=== PATIENT | male | born 1940 | race Caucasian/White ===

== ENCOUNTER 2019-06-15 21:42 | Inpatient (IN) | payer MEDICARE ==
[~2019-06-15] VITALS: Ht 188 cm; Wt 117.5 kg
[~2019-06-15 21:42] MED LIST: ACET325T14 PO; APIX2.5T PO; ATOR-2 PO; CARV3.1212 PO; CARV6.252 PO; GUAI200T37 PO; LISI-167 PO; POTA20TA14 PO; SPIR50TA PO
[2019-06-15] MEDS ORDERED: DILTIAZEM 125 MG in SODIUM CHLORIDE 0.9% 100 ML IV SCH (21:45)
[2019-06-15] MEDS ORDERED: DILTIAZEM 5 MG/ML, 5ML ONE (21:48)
[2019-06-15] MEDS ORDERED: ONDANSETRON 2MG/ML, 2ML ONE (21:48)
[2019-06-15] MEDS ORDERED: SODIUM CHLORIDE FLUSH 10ML SYR IVF ONE (22:00)
[2019-06-15] MEDS ORDERED: ONDANSETRON 2MG/ML, 2ML IVPush ONE (22:00)
[2019-06-15] MEDS ORDERED: DILTIAZEM 5 MG/ML, 5ML IV ONE (22:00)
[2019-06-15 22:01] LABS: BASOPHILS # (AUTO) 0.02 x10^3/uL (0-0.1); BASOPHILS % (AUTO) 0 % (0-1); EOSINOPHILS # (AUTO) 0.06 x10^3/uL (0-0.4); EOSINOPHILS % (AUTO) 1 % (1-7); LYMPHOCYTES # (AUTO) 1.34 x10^3/uL (1-3.4); LYMPHOCYTES % (AUTO) 16 % (22-44); MD NO; MEAN CORPUSCULAR HEMOGLOBIN 33.1 pg (27.5-34.5); MEAN CORPUSCULAR VOLUME 103.5 fL (81-97); MEAN PLATELET VOLUME 8.2 fL (7.4-10.4); MONOCYTES # (AUTO) 0.13 x10^3/uL (0.2-0.8); MONOCYTES % (AUTO) 2 % (2-9); NEUTROPHILS # (AUTO) 6.96 x10^3/uL (1.8-6.8); NEUTROPHILS % (AUTO) 82 % (42-75); PLATELET COUNT 153 x10^3/uL (130-400); RED CELL DISTRIBUTION WIDTH 15.3 % (9.4-14.8)
[2019-06-15 22:09] LABS: INTERNATIONAL NORMALIZED RATIO 1.11 (0.93-1.1); PROTHROMBIN TIME 11.6 Seconds (9.6-11.5)
[2019-06-15 22:11] LABS: ALANINE AMINOTRANSFERASE 24 U/L (12-78); ALBUMIN 3.5 g/dL (3.4-5.0); ANION GAP 7 mmol/L (5-15); CALCIUM 9.4 mg/dL (8.5-10.1); CHLORIDE 110 mmol/L (98-107); CREATININE 1.57 mg/dL (0.7-1.3)
[2019-06-15] MEDS ORDERED: CARV3.1212 PO (22:14)
[2019-06-15] MEDS ORDERED: SPIR50TA4 PO (22:14)
[2019-06-15] MEDS ORDERED: FURO20TA3 PO (22:14)
[2019-06-15 22:16] LABS: ALKALINE PHOSPHATASE 126 U/L (45-117); BILIRUBIN,TOTAL 1.6 mg/dL (0.2-1.0); TROPONIN I 0.023 ng/mL (0.000-0.045)
[2019-06-15] MEDS ORDERED: FUROSEMIDE 40 MG/4 ML IV ONE (22:30)
[2019-06-15] MEDS ORDERED: FUROSEMIDE 20 MG/2 ML ONE (22:36)
--- NOTE | 2019-06-15 22:50 | NUR ---
PT SATING 87% ON N/C AT 4L O2. PT PLACED ON OXY MASK 6L, SATING 91%
--- NOTE | 2019-06-15 23:31 | NUR ---
PT GIVEN URINAL TO VOID. PT RESTING CALMLY IN BED, AT BEDSIDE. WILL CONTINUE TO MONITOR.
[2019-06-16] MEDS ORDERED: ONDANSETRON ODT 4 MG PO PRN
[2019-06-16] MEDS ORDERED: OXYcodone IR 5MG TABLET PO PRN
[2019-06-16] MEDS ORDERED: PROMETHAZINE 25 MG/ML, 1ML IM PRN
[2019-06-16] MEDS ORDERED: hydrALAzine 20 MG/ML, 1ML IVPush PRN
[2019-06-16] MEDS ORDERED: DILTIAZEM 125 MG in SODIUM CHLORIDE 0.9% 100 ML IV PRN
[2019-06-16] MEDS ORDERED: ONDANSETRON 2MG/ML, 2ML IVPush PRN
[2019-06-16] MEDS ORDERED: DOCUSATE 100 MG CAPSULE PO PRN
[2019-06-16] MEDS ORDERED: DOXYCYCLINE 100MG TABLET PO SCH
[2019-06-16] MEDS ORDERED: POLYETHYLENE GLYCOL 17 GM PACKET PO PRN
[2019-06-16] MEDS ORDERED: BISACODYL 10 MG SUPP PR PRN
[2019-06-16] MEDS: ATORVASTATIN 80 MG TABLET PO SCH ×2 (00:20→20:46)
[2019-06-16] MEDS: APIXABAN 2.5 MG TABLET PO SCH ×3 (00:20→20:46)
--- NOTE | 2019-06-16 00:22 | NUR ---
PT BP DROPPING, SEE CHARTED. HOSPTIALIST AWARE, CARDIZEM GTT STOPPED AT THIS TIME, AND HOLD ALL HEART MEDS AT THIS TIME. WILL CONTINUE TO MONITOR. PT BREATHING IMPROVED AT THIS TIME. PT RELAXED, RESTING IN BED [place]UR[place].
[2019-06-16 00:37] LABS: FREE T4 (FREE THYROXINE) 1.22 ng/dL (0.76-1.46); TROPONIN I 0.036 ng/mL (0.000-0.045)
[2019-06-16 00:49] LABS: HEMOGLOBIN A1C 5.9 % (4.2-6.3)
[2019-06-16] MEDS ORDERED: GUAIFENESIN ER 600 MG TABLET ONE ×2 (01:03→09:04)
[2019-06-16] MEDS ORDERED: DOXYCYCLINE 100MG TABLET ONE (01:03)
[2019-06-16] MEDS: GUAIFENESIN ER 600 MG TABLET PO SCH ×3 (01:06→20:46)
--- NOTE | 2019-06-16 01:13 | NUR ---
PT MEDICATED WITH ORDERED MEDS. PT RESITNG CALMLY IN BED WITH OXY MASK AT 8L SATING 92%. PT BLADDER SCANNED, RESULTS 20mL. PT VSS AT THIS TIME. AT [facility]. REPORT GIVEN TO [facility]ERS. WILL MOVE PT WHEN ROOM AVAILABLE.
[2019-06-16 01:22] LABS: MICROSCOPIC NOT IND
[2019-06-16 01:29] LABS: CULTURE INDICATED? NO
[2019-06-16 05:42] LABS: BASOPHILS # (AUTO) 0.02 x10^3/uL (0-0.1); BASOPHILS % (AUTO) 0 % (0-1); EOSINOPHILS # (AUTO) 0.07 x10^3/uL (0-0.4); EOSINOPHILS % (AUTO) 1 % (1-7); LYMPHOCYTES # (AUTO) 2.79 x10^3/uL (1-3.4); LYMPHOCYTES % (AUTO) 25 % (22-44); MD NO; MEAN CORPUSCULAR HEMOGLOBIN 33.5 pg (27.5-34.5); MEAN CORPUSCULAR HGB CONC 32.4 g/dL (33.2-36.2); MEAN CORPUSCULAR VOLUME 103.5 fL (81-97); MEAN PLATELET VOLUME 8.3 fL (7.4-10.4); MONOCYTES # (AUTO) 0.45 x10^3/uL (0.2-0.8); MONOCYTES % (AUTO) 4 % (2-9); NEUTROPHILS # (AUTO) 7.79 x10^3/uL (1.8-6.8); NEUTROPHILS % (AUTO) 70 % (42-75); PLATELET COUNT 142 x10^3/uL (130-400); RED BLOOD COUNT 4.24 x10^6/uL (4.38-5.82); RED CELL DISTRIBUTION WIDTH 15.8 % (9.4-14.8)
[2019-06-16 05:45] LABS: ALBUMIN 2.9 g/dL (3.4-5.0); ANION GAP 8 mmol/L (5-15); CALCIUM 8.5 mg/dL (8.5-10.1); CHLORIDE 111 mmol/L (98-107)
[2019-06-16 05:52] LABS: ALANINE AMINOTRANSFERASE 24 U/L (12-78); ALKALINE PHOSPHATASE 94 U/L (45-117); BILIRUBIN,TOTAL 1.8 mg/dL (0.2-1.0); CHOL/HDL RATIO 3.4; CHOLESTEROL, TOTAL 84 mg/dL (140-239); CREATININE 1.62 mg/dL (0.7-1.3); HDL CHOL % 30 % (26-37); HDL CHOLESTEROL (DIRECT) 25 mg/dL (40-60); LDL CHOLESTEROL,CALCULATED 44 mg/dL (54-169); LDL/HDL RATIO 1.8 (0.5-3.0); TOTAL PROTEIN 6.6 g/dL (6.4-8.2); TRIGLYCERIDES 77 mg/dL (50-200); VLDL CHOLESTEROL 15 mg/dL (0-25)
--- NOTE | 2019-06-16 06:01 | NUR ---
Patient resting comfortably. Vital signs stable. Patient resting in hospital bed. Spouse at bedside.
--- NOTE | 2019-06-16 06:57 | NUR ---
Gave report to oncoming nurse, covered interventions and plan of care.
--- NOTE | 2019-06-16 06:58 | NUR ---
i am assuming care of this pt from brandin (fabby) at this time. sbar report was exchanged at the bedside.
[2019-06-16] MEDS ORDERED: FUROSEMIDE 20 MG/2 ML IV SCH (07:30)
[2019-06-16] MEDS ORDERED: ACETAMINOPHEN 325 MG TABLET PO PRN ×2 (08:00)
[2019-06-16] MEDS ORDERED: CARVEDILOL 3.125 MG TABLET PO SCH ×2 (09:00)
[2019-06-16] MEDS ORDERED: CARVEDILOL 3.125 MG TABLET ONE (09:04)
[2019-06-16] MEDS ORDERED: APIXABAN 5 MG TABLET ONE (09:04)
[2019-06-16] MEDS ORDERED: FUROSEMIDE 40 MG TABLET ONE (09:04)
[2019-06-16] MEDS: FUROSEMIDE 40 MG TABLET PO SCH (09:09)
--- NOTE | 2019-06-16 09:13 | NUR ---
CHIDI PROVIDED AND APOPRECIATED
[2019-06-16] MEDS ORDERED: CEFTRIAXONE PMX 2GM/50ML 50 ML IV SCH (10:00)
[2019-06-16 11:00] VITALS: BP 108/62
[2019-06-16] MEDS ORDERED: CEFTRIAXONE PMX 2GM/50ML 50 ML ONE (11:15)
--- NOTE | 2019-06-16 11:50 | NUR ---
verbal sbar exchanged w rn on ther floor for admission. we will begin to prepare for transport at this time.
[2019-06-16 13:48] VITALS: BP 100/66
[2019-06-16 19:56] VITALS: BP 102/66
[2019-06-16 20:17] LABS: RAPID INFLUENZA A Negative (Negative); RAPID INFLUENZA B Negative (Negative)
[2019-06-16 20:45] VITALS: BP 109/72
[2019-06-16] MEDS: CARVEDILOL 6.25 MG TABLET PO SCH (20:46)
[2019-06-16] MEDS: DOXYCYCLINE 100MG TABLET PO SCH (20:46)
[2019-06-17 01:12] VITALS: BP 104/66
[2019-06-17 05:52] LABS: BASOPHILS # (AUTO) 0.02 x10^3/uL (0-0.1); BASOPHILS % (AUTO) 0 % (0-1); EOSINOPHILS # (AUTO) 0.01 x10^3/uL (0-0.4); EOSINOPHILS % (AUTO) 0 % (1-7); LYMPHOCYTES # (AUTO) 2.55 x10^3/uL (1-3.4); LYMPHOCYTES % (AUTO) 34 % (22-44); MD NO; MEAN CORPUSCULAR HEMOGLOBIN 32.7 pg (27.5-34.5); MEAN CORPUSCULAR HGB CONC 32.1 g/dL (33.2-36.2); MEAN CORPUSCULAR VOLUME 101.8 fL (81-97); MONOCYTES # (AUTO) 0.49 x10^3/uL (0.2-0.8); MONOCYTES % (AUTO) 7 % (2-9); NEUTROPHILS # (AUTO) 4.35 x10^3/uL (1.8-6.8); NEUTROPHILS % (AUTO) 59 % (42-75); PLATELET COUNT 144 x10^3/uL (130-400); RED BLOOD COUNT 4.49 x10^6/uL (4.38-5.82); RED CELL DISTRIBUTION WIDTH 15.6 % (9.4-14.8)
[2019-06-17 06:01] LABS: ANION GAP 6 mmol/L (5-15); CALCIUM 8.8 mg/dL (8.5-10.1); CHLORIDE 108 mmol/L (98-107)
[2019-06-17 07:45] VITALS: BP 111/77
[2019-06-17 10:03] VITALS: BP 116/71
[2019-06-17] MEDS: GUAIFENESIN ER 600 MG TABLET PO SCH ×2 (10:04→20:03)
[2019-06-17] MEDS: CARVEDILOL 6.25 MG TABLET PO SCH ×2 (10:04→20:03)
[2019-06-17] MEDS: APIXABAN 2.5 MG TABLET PO SCH ×2 (10:04→20:03)
[2019-06-17] MEDS: DOXYCYCLINE 100MG TABLET PO SCH ×2 (10:05→20:03)
[2019-06-17] MEDS: FUROSEMIDE 40 MG TABLET PO SCH (10:05)
[2019-06-17 13:39] VITALS: BP 124/78
[2019-06-17] MEDS: ATORVASTATIN 80 MG TABLET PO SCH (20:03)
[2019-06-17 20:12] VITALS: BP 108/70
[2019-06-18 02:23] VITALS: BP 120/71
[2019-06-18 07:15] LABS: ANION GAP 6 mmol/L (5-15); CALCIUM 8.8 mg/dL (8.5-10.1); CHLORIDE 109 mmol/L (98-107); CREATININE 1.83 mg/dL (0.7-1.3)
[2019-06-18 08:07] VITALS: BP 122/76
[2019-06-18] MEDS: CARVEDILOL 6.25 MG TABLET PO SCH ×2 (09:32→20:37)
[2019-06-18] MEDS: APIXABAN 2.5 MG TABLET PO SCH ×2 (09:33→20:37)
[2019-06-18] MEDS: DOXYCYCLINE 100MG TABLET PO SCH ×2 (09:33→20:36)
[2019-06-18] MEDS: GUAIFENESIN ER 600 MG TABLET PO SCH ×2 (09:33→20:36)
[2019-06-18] MEDS: FUROSEMIDE 40 MG TABLET PO SCH (09:33)
[2019-06-18 13:23] VITALS: BP 128/80
[2019-06-18 19:26] VITALS: BP 114/63
[2019-06-18] MEDS: ATORVASTATIN 80 MG TABLET PO SCH (20:36)
[2019-06-19 00:15] VITALS: BP 133/79
[2019-06-19 05:44] LABS: CHLORIDE 106 mmol/L (98-107)
[2019-06-19 05:55] LABS: ANION GAP 6 mmol/L (5-15); CALCIUM 9.2 mg/dL (8.5-10.1); CREATININE 1.62 mg/dL (0.7-1.3)
[2019-06-19 08:28] VITALS: BP 131/79
[2019-06-19] MEDS: APIXABAN 2.5 MG TABLET PO SCH (09:00)
[2019-06-19] MEDS: DOXYCYCLINE 100MG TABLET PO SCH (09:00)
[2019-06-19] MEDS: GUAIFENESIN ER 600 MG TABLET PO SCH (09:00)
[2019-06-19] MEDS: CARVEDILOL 6.25 MG TABLET PO SCH (09:01)
[2019-06-19] MEDS: FUROSEMIDE 40 MG TABLET PO SCH (09:01)
[2019-06-19] MEDS ORDERED: HYDR-3341 PO (12:50)
[2019-06-19] MEDS ORDERED: DOXY100T PO (12:50)
[2019-06-19] MEDS ORDERED: GUAI600T31 PO (12:50)
[2019-06-19] MEDS ORDERED: CARV6.2512 PO (12:50)
[2019-06-19] MEDS ORDERED: CARVEDILOL 6.25 MG TABLET PO SCH (21:00)
[2019-06-20] MEDS ORDERED: FUROSEMIDE 20 MG TABLET PO SCH (09:00)
== END 2019-06-19 14:40 | disposition home or self-care (01) | DRG 291 ==
LOC: ED 23:00 → EDIP 23:09 → 5SO 06-16 13:21 → DCLOUNGE 06-19 14:25
PROVIDERS: ADMIT Internal Medicine; ATTEND Internal Medicine
PROC: 5A09357 Assistance with Respiratory Ventilation, Less than 24 Consecutive Hours, Continuous Positive Airway Pressure (ICD-10-PCS; principal; 2019-06-15)
PROC: 5A09357 Assistance with Respiratory Ventilation, Less than 24 Consecutive Hours, Continuous Positive Airway Pressure (ICD-10-PCS; 2019-06-17)
PROC: 5A09357 Assistance with Respiratory Ventilation, Less than 24 Consecutive Hours, Continuous Positive Airway Pressure (ICD-10-PCS; 2019-06-18)
PROC: 5A09357 Assistance with Respiratory Ventilation, Less than 24 Consecutive Hours, Continuous Positive Airway Pressure (ICD-10-PCS; 2019-06-19)
DX: I13.0 Hypertensive heart and chronic kidney disease with heart failure and stage 1 through stage 4 chronic kidney disease, or unspecified chronic kidney disease (principal); I50.23 Acute on chronic systolic (congestive) heart failure; J96.21 Acute and chronic respiratory failure with hypoxia; I47.2 Ventricular tachycardia; I48.20 Chronic atrial fibrillation, unspecified; E78.5 Hyperlipidemia, unspecified; G47.33 Obstructive sleep apnea (adult) (pediatric); I07.1 Rheumatic tricuspid insufficiency; I25.10 Atherosclerotic heart disease of native coronary artery without angina pectoris; I27.20 Pulmonary hypertension, unspecified; I45.10 Unspecified right bundle-branch block; I87.8 Other specified disorders of veins; J40 Bronchitis, not specified as acute or chronic; N18.3 Chronic kidney disease, stage 3 (moderate); Z82.49 Family history of ischemic heart disease and other diseases of the circulatory system; Z83.3 Family history of diabetes mellitus; Z87.891 Personal history of nicotine dependence; Z95.1 Presence of aortocoronary bypass graft; Z99.81 Dependence on supplemental oxygen; Z88.5 Allergy status to narcotic agent; Z88.8 Allergy status to other drugs, medicaments and biological substances; Z91.018 Allergy to other foods; Z91.048 Other nonmedicinal substance allergy status
CPT/HCPCS: 36415; 36600; 71045; 80048; 80053; 80061; 81003; 82803; 83036; 83735; 83880; 84439; 84443; 84484; 85025; 85610; 85730; 87040; 87070; 87205; 87400; 93005; 93306; 94660; 99291; G0378; J0696; J1940; J2405